=== PATIENT | male | born 1955 | race Caucasian/White ===

== ENCOUNTER → 2016-08-14 | Outpatient (CLI) | payer BC ==
[2016-08-14 13:57] LABS: HIV-1p24 Antigen Non-Reactive
[2016-08-14 14:00] LABS: HIV 1/2 Antibodies Preliminary Positive
== END ==
LOC: COL.LAB 11:43
PROVIDERS: Anesthesiology Pain Medicine
DX: Z01.89 Encounter for other specified special examinations (principal)